=== PATIENT | male | born 1980 | race Hispanic/Latino ===

== ENCOUNTER 2019-08-28 | Inpatient (IN) | payer BC | END 2019-08-31 15:40 | disposition home or self-care (01) | DRG 439 | PROVIDERS: ADMIT Internal Medicine | DX: K85.20 Alcohol induced acute pancreatitis without necrosis or infection (principal); E87.2 Acidosis; E87.1 Hypo-osmolality and hyponatremia; R65.10 Systemic inflammatory response syndrome (SIRS) of non-infectious origin without acute organ dysfunction; E87.5 Hyperkalemia; N40.0 Benign prostatic hyperplasia without lower urinary tract symptoms; E78.5 Hyperlipidemia, unspecified; I10 Essential (primary) hypertension; K70.0 Alcoholic fatty liver; F10.10 Alcohol abuse, uncomplicated; E83.39 Other disorders of phosphorus metabolism; Z79.899 Other long term (current) drug therapy ==